=== PATIENT | female | born 1995 | race Two or more races ===

== ENCOUNTER → 2021-07-27 | Outpatient (CLI) | payer OTHER ==
--- NOTE | 2021-07-28 06:44 | REP ---
INDICATION: GEST DIABETES COMPARISON: None. TECHNIQUE: Transabdominal obstetrical ultrasound with color Doppler evaluation. FINDINGS: Examination demonstrates a single live intrauterine in cephalic presentation. motion is identified by technologist. Placenta is noted anterior and grade 0 without evidence for placenta previa or abruption. Amniotic fluid volume is normal. Cervix measures 3.4 cm in length and appears closed.. Selected gestational age: 29 weeks 6 days with KIMMY 10/06/2021. Gestational age by current measurements 31 weeks 4 days with KIMMY is 09/24/2021. FHR equals 162 beats per minute. BPD: 7.3 cm at 29 weeks 3 days HC: 27.5 cm at 30 weeks 5 days AC: 26.8 cm at 30 weeks 6 days FL: 6.8 cm at 34 weeks 5 days HL: 5.6 cm at 32 weeks 4 days HC/AC: 1.03 Estimated weight 1858 grams (greater than 97th percentile). Anatomical assessment is limited. Visualized structures including cranium, facial features, nose/lips, lungs, diaphragm/stomach, abdominal wall, kidneys/bladder and spine, and extremities are normal. IMPRESSION: Single live intrauterine in cephalic presentation demonstrating greater than expected interval growth and correlation is required. Limited anatomical assessment due to age and positioning. <Electronically signed by Jayme Ramirez > 07/28/21 [id number]
== END ==
LOC: M RAD 15:21
PROVIDERS: ATTEND Registered Nurse Maternal Newborn
DX: Z34.83 Encounter for supervision of other normal pregnancy, third trimester (principal); Z3A.29 29 weeks gestation of pregnancy

== ENCOUNTER → 2021-08-11 | Outpatient (CLI) | payer OTHER ==
--- NOTE | 2021-08-12 05:13 | REP ---
INDICATION: GROWTH COMPARISON: 07/27/2021 TECHNIQUE: Transabdominal obstetrical ultrasound with color Doppler evaluation. FINDINGS: Examination demonstrates a single live intrauterine in cephalic presentation. motion is identified by technologist. Placenta is noted anterior and grade 1 without evidence for placenta previa or abruption. Amniotic fluid volume is normal. Cervix measures 3.7 cm in length and appears closed.. Selected gestational age: 32 weeks 0 days with KIMMY 10/06/2021. Gestational age by current measurements 32 weeks 5 days with KIMMY 10/01/2021. FHR equals 135 beats per minute. BPD: 8.0 cm at 32 weeks 2 days HC: 29.1 cm at 32 weeks 0 days AC: 27.5 cm at 31 weeks 4 days FL: 6.6 cm at 33 weeks 6 days HL: 5.9 cm at 34 weeks 0 days HC/AC: 1.06 Estimated weight 1964 grams (59thpercentile). YULIYA: 11.1 cm Umbilical artery SD ratio: 1.97 IMPRESSION: Single live intrauterine in cephalic presentation demonstrating appropriate estimated weight and growth. Amniotic fluid index normal. <Electronically signed by Jayme Ramirez > 08/12/21 0295
== END ==
LOC: M RAD 13:34
PROVIDERS: ATTEND Registered Nurse Maternal Newborn
DX: Z36.9 Encounter for antenatal screening, unspecified (principal); Z3A.32 32 weeks gestation of pregnancy

== ENCOUNTER 2021-09-18 07:21 | Inpatient (IN) | payer OTHER ==
[2021-09-18] VITALS (42 sets, daily range): BP systolic 94–152; BP diastolic 53–94
[~2021-09-18] VITALS: Ht 170.2 cm; Wt 98.8 kg
[2021-09-18] MEDS ORDERED: PRENTAB9 PO (07:39)
[2021-09-18] MEDS ORDERED: HOME MED LIST COMPLETE! XX SCH (07:40)
[2021-09-18] MEDS ORDERED: OXYTOCIN DRIP 30 UNITS in IV 1 EA IV PRN ×4 (09:15)
[2021-09-18] MEDS ORDERED: OXYTOCIN DRIP 30 UNITS in IV 1 EA IV SCH (09:15)
[2021-09-18] MEDS ORDERED: LR 1,000 ML IV SCH ×2 (09:15→20:25)
--- OUTSIDE RECORDS SUMMARY | 2021-09-18 09:22 | CCD ---
Author Author [facility] Organization [facility] Address Unknown Phone Unavailable Support Name Relationship Address Phone ARMY Next Of Kin [address] [place] [address] Unavailable THI ELIZABETH Next Of Kin [address] [place] [address] Re-disclosure Warning The records that you are about to access may contain information from federally-assisted alcohol or drug abuse programs. If such information is present, then the following federally mandated warning applies: This information has been disclosed to you from records protected by federal confidentiality rules (42 CFR part 2). The federal rules prohibit you from making any further disclosure of this information unless further disclosure is expressly permitted by the written consent of the person to whom it pertains or as otherwise permitted by 42 CFR part 2. A general authorization for the release of medical or other information is NOT sufficient for this purpose. The Federal rules restrict any use of the information to criminally investigate or prosecute any alcohol or drug abuse patient.The records that you are about to access may contain highly sensitive health information, the redisclosure of which is protected by Article 27-F of the [facility] Public Health law. If you continue you may have access to information: Regarding HIV / AIDS; Provided by facilities licensed or operated by the [facility] Office of Mental Health; or Provided by the [facility] Office for People With Developmental Disabilities. If such information is present, then the following [facility] mandated warning applies: This information has been disclosed to you from confidential records which are protected by state law. State law prohibits you from making any further disclosure of this information without the specific written consent of the person to whom it pertains, or as otherwise permitted by law. Any unauthorized further disclosure in violation of state law may result in a fine or usp sentence or both. A general authorization for the release of medical or other information is NOT sufficient authorization for further disc losure. Medications No Information Insurance Providers Payer name Policy type / Coverage type Policy ID Covered constitution party ID Covered constitution party's relationship to garcia Policy Garcia Plan Information [facility] [employer] [id number] Problems, Conditions, and Diagnoses No Information Surgeries/Procedures No Information Results No Information Social History No Information
--- NOTE | 2021-09-18 09:45 | HPEPDOC ---
Obstetrical History & Physical General Date of Admission Sep 18, 2021 at 09:08 History of Present Illness 25yo at 37+3 presents for leakage of clear fluid. She noted this at 0645 this morning. She denies vaginal bleeding, loss of fluid, regular contractions. She endorses positive movement. 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 pertinent history (denies STis, HSV) Past Medical History Medical History Depression Family History Significant Family History: Other (oral surgery) Family History Family history of breast cancer in 30s, considering BRCA testing Social History Marital Status: Other (engaged) Family situation: Spouse/partner home Psychosocial History: Depression * Smoker: non-smoker Alcohol: Denies Drugs: denies Abuse Violence Screening Have you been hit/kicked/slapp: No Have you been sexually assault: No Imunizations Tdap status: current Influenza Status: current Allergies Coded Allergies: No Known Allergies (Unverified , 09/18/21) Medications Scheduled No.137/Iron/Folic Acd ( Vitamin Tablet) 1 Each Tablet, 1 TAB PO DAILY Physical Examination Physical Examination GENERAL: Alert and oriented times three. ABDOMEN: Gravid and non-tender to touch. FETUS: Is vertex (VTX) by ultrasound HEART RATE: Regular rate LUNGS: nonlabored breathing EXTREMITIES: No edema. Vital Signs/I&O Vital Signs Date Time Temp Pulse Resp B/P (MAP) Pulse Ox O2 Delivery O2 Flow Rate FiO2 09/18/21 07:33 97.5 81 17 128/73 (91) Laboratory Data Urine Culture: No Growth Pertinent Laboratoy Data Blood Type: O+ RBC Antibody Screen: Negative HIV: Negative Hepatitis B: Negative Rapid Plasma Reagin: Nonreactive Rubella: Immune Varicella: Immune Chlamydia/Gonorrhea: Negative Group B Streptococcus: Unknown Cystic Fibrosis: Negative Glucose Tolerance Test: 134 Diag/Inter Therapy A1GDM good control Anatomy Ultrasound Ultrasound Date: May 25, 2021 Placenta Location: Anterior Normal Anatomy: Yes Placenta Previa: No Steroid Therapy Steroid Therapy: No Assessment Heart Rate (FHR): 140 Variability: Moderate Accelerations: Positive Decelerations: None Tocometer Contractions: Yes Frequency: irregular Multi-drug resistant Organism: No history of MDRO Assessment/Plan Assessment Mary Gonzales is a 25-year-old at 37+3 weeks by LMP consistent with 1st trimester Presents to Labor and Delivery (L&D) with confirmed rupture of membranes via positive pooling and ferning. GBS unknown however no risk factors for GBS; will check in clinic for a result, no access at this time. Cephalic by ultrasound. Category I tracing. EFW 3400g. Plan Admit and orient. 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 Diet: regular x1 then clear liquid Group B Streptococcus (GBS) [unknown]. Labs and intravenous (IV) per unit protocol. Counseled on Pitocin, cytotec and induction of labor (IOL). Discussed options of waiting up to 12 hours after rupture for natural labor vs. immediate induction; discussed that prolonged rupture of membranes is a risk for infection that can have adverse maternal and effects. She desires induction. Lactated Ringers (LR): at 125 mL/hr. Anticipate [normal spontaneous delivery ()]. C-S as appropriate. Labor and Delivery Counseling I counseled her on the risks of vaginal delivery including but not limited to infection, bleeding. Described hemorrhage response in detail including need for blood transfusion and hysterectomy as life saving measures. Described cytotec, oxytocin labor induction/augmentation process and continuous monitoring. Described indications and risks of/for delivery, forceps and vacuum deliveries. Risks of delivery including bleeding, infection, damage to nearby structures. Talked about shoulder dystocia and necessary measures including possible intentional breaking of clavicle or other bones to save the baby. She indicated understanding and all questions were answered. TERI ATWOOD DO Sep 18, 2021 09:45
[2021-09-18 10:25] LABS: MEAN CORPUSCULAR HEMOGLOBIN 28.5 pg (27.0-33.0); MEAN CORPUSCULAR HGB CONC 33.3 g/dl (32.0-36.5); MEAN CORPUSCULAR VOLUME 85.5 fl (80.0-96.0); PLATELET COUNT, AUTOMATED 328 10^3/uL (150-450); RED BLOOD COUNT 4.21 10^6/uL (4.00-5.40); WHITE BLOOD COUNT 10.8 10^3/uL (4.0-10.0)
--- NOTE | 2021-09-18 12:52 | IPNPDOC ---
Text Note Date of Service The patient was seen on 09/18/21. NOTE Patient GBS result located in the office and it is negative. Category I tracing, contractions every 2-5 minutes. Continue present management. VS,Fishbone, I+O VS, Fishbone, I+O Laboratory Tests 09/18/21 10:02 Vital Signs Date Time Temp Pulse Resp B/P (MAP) Pulse Ox O2 Delivery O2 Flow Rate FiO2 09/18/21 11:06 98.1 99 94/53 (67) 09/18/21 07:33 17 TERI ATWOOD DO Sep 18, 2021 12:52
--- NOTE | 2021-09-18 14:15 | IPNPDOC ---
Obstetrical Progress Note Date of Service Sep 18, 2021 Subjective I was contacted by nursing concerning Mary Gonzales as the tracing had developed recurrent variable decelerations. Otherwise there is moderate variability and accelerations present which is overall reassuring. She has no complaints. Objective Vital Signs Date Time Temp Pulse Resp B/P (MAP) Pulse Ox O2 Delivery O2 Flow Rate FiO2 09/18/21 12:27 86 18 116/64 (81) 09/18/21 11:06 98.1 Assessment Heart Rate (FHR): 140 Variability: Moderate Accelerations: Positive Decelerations: Variable Heart Rate Tracing: Category II Tocometer Contractions: Yes Frequency: every 3-7 min. Sterile Vaginal Examination Dilation: 3 cm Effacement (%): 50% Station: -3 Cervical Consistency: Medium Cervical Position: Middle Postion/Presentation: Cephalic presentation Assessment and Plan Status: Reassuring Group B Streptococcus: Negative Anticipate: Vaginal Delivery Additional Comments I counseled the patient on r/b/a to amnioinfusion and she agreed to an amnioinfusion. Her cervix remains unchanged at 3/50/-3. Her placenta is anterior so I placed the intrauterine pressure catheter posteriorly and confirmed placement with a patient cough. Amnioinfusion started at 500mL over 45 minutes with plan to continue then at 125mL per hour. I discussed with the patient that I do expect the amnioinfusion to treat the variable decelerations however if it does not than I would recommend delivery and as she is remote from delivery this would be via a delivery. It would take about 30 minutes to see if the amnioinfusion is having an effect or not. She indicated understanding. -amnioinfusion 500mL/45 minute bolus -continue at 125mL/hour -otherwise routine intrapartum care TERI ATWOOD DO Sep 18, 2021 14:15
[2021-09-18] MEDS ORDERED: FENTANYL 2MCG/ML ROPIVACAINE 0.2% IN 0.9% NACL 100ML IVBAG As Ordered ONE (15:24)
[2021-09-18] MEDS ORDERED: LACTATED RINGER'S 1000 ML IV PRN (15:25)
[2021-09-18] MEDS ORDERED: EPIDURAL COMMENT XX SCH (15:25)
[2021-09-18] MEDS ORDERED: REFRIGERATOR IV KEYS XX PRN (15:25)
[2021-09-18] MEDS ORDERED: ePHEDrine SULFATE 25 MG/5 ML(5MG/ML) SYRINGE IV PRN (15:25)
[2021-09-18] MEDS ORDERED: NALOXONE INJ 0.4MG/1ML VIAL (J2310 PER 1MG) IV PRN (15:25)
[2021-09-18] MEDS ORDERED: ONDANSETRON 4MG/2ML VIAL IV PRN ×2 (15:25→20:25)
[2021-09-18] MEDS ORDERED: EPIDURAL/PCA KEYS XX PRN (15:25)
[2021-09-18] MEDS ORDERED: FENTANYL/ROPIVACAINE/NACL BAG 100 ML EPIDURAL SCH (15:25)
[2021-09-18] MEDS ORDERED: diphenhydrAMINE 50MG/ML VIAL (J1200) IV PRN (15:25)
--- NOTE | 2021-09-18 18:58 | IPNPDOC ---
Obstetrical Progress Note Date of Service Sep 18, 2021 Subjective Mary Gonzales is comfortable with her epidural. She denies an urge to push at this time. No complaints. Objective Vital Signs Date Time Temp Pulse Resp B/P (MAP) Pulse Ox O2 Delivery O2 Flow Rate FiO2 09/18/21 18:12 89 104/69 (81) 09/18/21 16:27 18 09/18/21 16:22 97.3 Assessment Heart Rate (FHR): 110 Variability: Moderate Accelerations: Positive Decelerations: Early, Late, Variable Heart Rate Tracing: Category II Tocometer Contractions: Yes Frequency: regular, every 2-5 min. Sterile Vaginal Examination Dilation: 8 cm Effacement (%): 90% Station: -1, 0 Cervical Consistency: Soft Cervical Position: Anterior Postion/Presentation: Cephalic presentation Assessment and Plan Age: 25 : 3 Term: 0 Pre-term: 1 Abortions: 1 Livin Weeks & Days 37+3 Status: Reassuring Group B Streptococcus: Negative Anticipate: Vaginal Delivery Additional Comments Mary Gonzales has progressed to 8cm on a pitocin of 10. She has had some variable and late decelerations which have resolved with position changes and lowering of the pitocin to 5. Tracing has maintained moderate variability throughout. -can continue to labor as she is progressing -anticipate vaginal delivery TERI ATWOOD DO Sep 18, 2021 18:57
[2021-09-18] MEDS ORDERED: METHYLERGONOVINE MALEATE 0.2 MG TAB PO PRN (20:25)
[2021-09-18] MEDS ORDERED: PROMETHAZINE 25 MG TAB PO PRN (20:25)
[2021-09-18] MEDS ORDERED: DOCUSATE SODIUM 100MG CAPSULE PO PRN (20:25)
[2021-09-18] MEDS ORDERED: MEASLES,MUMPS,RUBELLA VACCINE INJ (MMR-II) (90707) SC SCH (20:25)
[2021-09-18] MEDS ORDERED: DIBUCAINE 1% OINTMENT 30GM TOP PRN (20:25)
[2021-09-18] MEDS ORDERED: RHOGAM 300 MCG (1500 IU) INJ (J2790) IM SCH (20:25)
[2021-09-18 20:35] LABS: CORD GAS ABE A -4.1; CORD GAS ABE V -2.9; CORD GAS HCO3 A 20.3 MEQ/L; CORD GAS HCO3 V 22.9 MEQ/L; CORD GAS O2 SAT A 98.1 %; CORD GAS O2 SAT V 90.7 %; CORD GAS PCO2 A 35.2 mmHg; CORD GAS PCO2 V 43.3 mmHg; CORD GAS PH A 7.378 UNITS; CORD GAS PH V 7.341 UNITS; CORD GAS PO2 A 79.5 mmHg; CORD GAS PO2 V 45.6 mmHg; CORD GAS SBC A 21.2 MEQ/L; CORD GAS SBC V 21.9 MEQ/L; CORD GAS TCO2 A 21.3 MEQ/L; CORD GAS TCO2 V 24.2 MEQ/L
--- NOTE | 2021-09-18 20:35 | DNPDOC ---
[facility] Delivery Note Delivery Note DATE OF DELIVERY: 18SEP2021 PREDELIVERY DIAGNOSIS: 37+3 weeks' gestation and induction of labor for prelabor rupture of membranes POST DELIVERY DIAGNOSIS: Delivered. PROCEDURE: Spontaneous vaginal delivery WIPING RAG WASHER: Josue Crouch DO ANESTHESIA: epidural ESTIMATED BLOOD LOSS: 300 mL. FINDINGS: 6 pound 8 ounce 2940g , Score 7/8 DELIVERY SUMMARY: Mary Gonzales is a 25-year-old 3 now para 1112. After achieving complete dilation pushing was initiated and the head reached +3 station. Over the next several pushes the head delivered without issue followed by the anterior shoulder, posterior shoulder and the corpus. The was placed on the maternal abdomen and dried/stimulated/bulb suctioned as needed. Good cry was noted. After one minute of delay the cord was clamped by me and cut by the partner. With gentle cord traction the placenta was then delivered, inspected and found to be intact. Inspection of the perineum revealed bilateral labial abrasions that were hemostatic. Hemostasis was noted. All counts were correct. The maternal- dyad appeared to be bonding appropriately and was left in good condition. DO ANGELIC Llamas BRADLEY J. DO Sep 18, 2021 20:35
[2021-09-18] MEDS: ACETAMINOPHEN 500 MG TAB PO SCH (20:42)
[2021-09-18] MEDS: IBUPROFEN 800 MG TAB PO SCH (22:55)
[2021-09-19] MEDS: ACETAMINOPHEN 500 MG TAB PO SCH ×4 (02:36→20:35)
[2021-09-19] MEDS: IBUPROFEN 800 MG TAB PO SCH ×3 (05:27→22:02)
[2021-09-19 06:00] VITALS: BP 125/80
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
[2021-09-19] MEDS: PRENATAL VITAMINS CHEWABLE TABLET PO SCH (07:33)
[2021-09-19 07:59] LABS: HEMATOCRIT 27.3 % (36.0-47.0); MEAN CORPUSCULAR HGB CONC 32.2 g/dl (32.0-36.5); MEAN CORPUSCULAR VOLUME 86.9 fl (80.0-96.0); PLATELET COUNT, AUTOMATED 238 10^3/uL (150-450); RED BLOOD COUNT 3.14 10^6/uL (4.00-5.40); WHITE BLOOD COUNT 13.2 10^3/uL (4.0-10.0)
[2021-09-19 08:01] LABS: HEMOGLOBIN 8.8 g/dl (12.0-15.5)
[2021-09-19] MEDS ORDERED: PRENATAL VITAMINS CHEWABLE TABLET PO SCH (09:00)
[2021-09-19 17:44] VITALS: BP 115/68
[2021-09-20] MEDS: ACETAMINOPHEN 500 MG TAB PO SCH ×2 (02:26→07:37)
[2021-09-20 06:00] VITALS: BP_SYST 113; BP_SYST 121; BP_DIAS 57; BP_DIAS 86
[2021-09-20] MEDS: IBUPROFEN 800 MG TAB PO SCH (06:00)
--- NOTE | 2021-09-20 07:00 | IPNPDOC ---
Progress Note Date of Service: Sep 20, 2021 Day#: 2 Progress Note Ms. Gonzales is a 25yo G1112 on day 2 after at 37+3wks. Intact perineum. S: States she is doing well. Reports pain well controlled. She is ambulating well, tolerating a regular diet, urinating without difficulty, reports normal bowel activities and has no breast or leg pain. Some nipple blisters with b reastfeeding. States is going well with formula supplementation. Lochia is diminishing. Reports moods are stable. Does have hx of depression, not currently on medications but does have them at home. Ambulating well, denies dizziness, lightheadedness. O: VS: Vital Signs Label Value Date Time Patient Temperature 98.1 degrees F 09/20/21 0600 Temperature Source Temporal 09/20/21 06 Pulse 77 09/20/21 06 Respiratory Rate 18 bpm 09/20/21 06 Blood Pressure Assessment 121/86 (98) 09/20/21 0600 Source Automatic Cuff (NIBP) General: Alert. Well-appearing, in no acute distress. PSYCH: Well groomed. Appropriate affect, normal mood. Conversed easily. Neuro: Oriented to time, place, and person. RESP: Lungs clear to auscultation bilaterally without wheezes, rales or rhonchi. Unlabored breathing. CV: Normal RRR, no murmur, c/w normal . No edema to bilateral upper and lower extremities. Negative calf tenderness. Breast: Soft, filling. No erythema or tenderness. Intact nipples. ABD: Soft, non-tender. BS normal x4 quad. Fundus: Firm U-2, Fundus non-tender. MSK: legs without calf tenderness or edema bilaterally A/P 25yo day 2 s/p at 37+3 wks gestation O positive/RI/ GBS unknown Normal progression well with some latch difficulties. VSS Plans Depo for control after discharge at 6 weeks. Plan discharge today when ready. Potential for infant to stay under bili lights. In this case, march board. To follow up in [facility] clinic at 3 weeks for depression screen and in 6-8wks for PP visit. Discharge teaching completed with patient, see discharge summary. VS, I&O, 24H, Fishbone Vital Signs/I&O Vital Signs Date Time Temp Pulse Resp B/P (MAP) Pulse Ox O2 Delivery O2 Flow Rate FiO2 09/20/21 06:00 98.1 77 18 121/86 (98) 09/19/21 17:44 96 Room Air Laboratory Data 24H LABS Laboratory Tests 2 09/19/21 07:48: Nucleated Red Blood Cells % (auto) 0.0 CBC/BMP Laboratory Tests 09/19/21 07:48 JULIANA MUJICA CNM Sep 20, 2021 07:00
--- NOTE | 2021-09-20 07:03 | DS.PDOC ---
Discharge Summary General Date of Admission Sep 18, 2021 at 09:08 Date of Discharge Sep 20, 2021 Discharge Summary Date of Admission: 09/18/21 Admission Diagnosis: PROM at term Delivery Date: 09/18/21 Discharge Diagnosis: Normal spontaneous vaginal delivery, term up to 40 weeks gestation Velasquez gestation, live infant Procedures: Augmentation External Monitoring Epidural IUPC Amnioinfusion Vaginal Delivery Condition on Discharge: Stable Discharged to: Home Hospital Course: Ms. Gonzales is a 25 year old G3 now P 2 who delivered a viable infant female at 37+3 weeks gestation via spontaneous vaginal delivery after arriving to unit with ruptured membranes. Ms. Gonzales has had an uncomplicated course. She has remained afebrile and normotensive with diminishing lochia throughout her stay. She is ambulating well, tolerating a regular diet, urinating without difficulty, reports normal bowel activities and has no breast or leg pain. She is stable and ready for discharge. Day of discharge physical exam documented in progress note. Infant feeding at discharge is breastmilk and formula. Planned control is depo. To follow up in the [facility] clinic in 3 weeks for depression screen and 6-8 weeks for visit. Discharge management time Spent: <30 minutes I saw and evaluated the patient, and completed the documentation personally. -MAJ Suzie Mujica CNM Vital Signs/I&Os Vital Signs Date Time Temp Pulse Resp B/P (MAP) Pulse Ox O2 Delivery O2 Flow Rate FiO2 09/20/21 06:00 98.1 77 18 121/86 (98) 09/19/21 17:44 96 Room Air Laboratory Data Labs 24H Laboratory Tests 2 09/19/21 07:48: Nucleated Red Blood Cells % (auto) 0.0 CBC/BMP Laboratory Tests 09/19/21 07:48 Discharge Medications Scheduled No.137/Iron/Folic Acd ( Vitamin Tablet) 1 Each Tablet, 1 TAB PO DAILY, (Reported) Allergies Coded Allergies: No Known Allergies (Unverified , 09/18/21) SUZIE MUJICA CNM Sep 20, 2021 07:01
[2021-09-20] MEDS: PRENATAL VITAMINS CHEWABLE TABLET PO SCH (07:38)
== END 2021-09-20 10:15 | disposition home or self-care (01) | DRG 807 ==
LOC: M LDO 07:21 → M LDI 09:08 → M OBS 22:30
PROVIDERS: ADMIT Obstetrics & Gynecology; ATTEND Obstetrics & Gynecology
PROC: 10E0XZZ Delivery of Products of Conception, External Approach (ICD-10-PCS; principal; 2021-09-18)
DX: O80 Encounter for full-term uncomplicated delivery (principal); Z37.0 Single live birth; Z3A.37 37 weeks gestation of pregnancy